=== PATIENT | male | born 1955 | race Caucasian/White ===

== ENCOUNTER 2018-01-02 08:27 | Emergency (ER) | payer OTHER ==
[2018-01-02 09:00] LABS: URINE BLOOD (Dip) POC Trace-intact (NEGATIVE); URINE GLUCOSE (Dip) POC Negative (NEGATIVE); URINE KETONES (Dip) POC Negative (NEGATIVE); URINE LEUKOCYTE EST (Dip) POC Negative (NEGATIVE); URINE NITRITE (Dip) POC Negative (NEGATIVE); URINE TOTAL PROTEIN POC Trace (NEGATIVE)
== END 2018-01-02 09:30 | disposition home or self-care (01) ==
LOC: FTE 08:27
DX: R30.0 Dysuria (principal)
CPT/HCPCS: 81003; 87086; 99283

== ENCOUNTER 2018-01-06 09:42 | Emergency (ER) | payer OTHER | END 2018-01-06 13:15 | disposition home or self-care (01) | LOC: FTE 09:42 | DX: N48.1 Balanitis (principal) | CPT/HCPCS: 99282 ==